=== PATIENT | female | born 1935 | race Caucasian/White ===

== ENCOUNTER 2019-07-15 21:12 | Emergency (ER) | payer OTHER ==
--- NOTE | 2019-07-15 21:52 | RAD ---
EXAM: XR Shoulder Lt 3 View STANDARD PROVIDED CLINICAL HISTORY: Pain FINDINGS: There is no evidence for fracture or other acute osseous abnormality. Alignment appears anatomic. Kalyani nt spaces appear preserved. Acromioclavicular joint degenerative changes are seen. IMPRESSION: No evidence for an acute osseous abnormality. If there is persistent clinical concern, conservative m anagement and follow-up imaging advised.
[2019-07-15] MEDS ORDERED: Ibuprofen 200 MG TAB ONE (23:17)
[2019-07-15] MEDS ORDERED: Acetaminophen/Codeine 30-300mg Tablet ONE (23:20)
== END 2019-07-15 23:30 | disposition home or self-care (01) ==
LOC: ERS 21:12
DX: M25.412 Effusion, left shoulder (principal)